=== PATIENT | female | born 1985 | race Caucasian/White ===

== ENCOUNTER 2021-10-26 15:27 | Emergency (ER) | payer OTHER ==
[~2021-10-26] VITALS: Ht 162.6 cm; Wt 95.5 kg
[2021-10-26] MEDS ORDERED: IBUPROFEN 800 MG TAB PO ONE (16:45)
[2021-10-26] MEDS ORDERED: IBUP80TA PO (18:02)
[2021-10-26 18:47] VITALS: BP 111/58
== END 2021-10-26 18:50 | disposition home or self-care (01) ==
LOC: M ED 15:27
DX: S39.012A Strain of muscle, fascia and tendon of lower back, initial encounter (principal); X50.0XXA Overexertion from strenuous movement or load, initial encounter; Y92.009 Unspecified place in unspecified non-institutional (private) residence as the place of occurrence of the external cause; Y93.9 Activity, unspecified; Y99.9 Unspecified external cause status; E11.9 Type 2 diabetes mellitus without complications; F41.9 Anxiety disorder, unspecified